=== PATIENT | female | born 1960 | race Caucasian/White ===

== ENCOUNTER 2017-06-30 19:43 | Emergency (ER) | payer MEDICAID ==
[~2017-06-30] VITALS: Ht 167.6 cm; Wt 79.4 kg
[2017-06-30 19:53] VITALS: Ht 167.6 cm; Wt 79.4 kg
[2017-06-30 21:33] VITALS: BP 139/85
== END 2017-06-30 21:33 | disposition home or self-care (01) ==
LOC: ED 19:43
DX: M25.512 Pain in left shoulder (principal); R51 Headache; M25.562 Pain in left knee